=== PATIENT | male | born 1995 | race Caucasian/White ===

== ENCOUNTER → 2022-04-02 | Emergency (ER) | payer OTHER ==
[~2022-04-02] VITALS: Ht 170.2 cm; Wt 81.6 kg
[2022-04-02 17:24] VITALS: BP 118/70
== END | disposition left against medical advice (07) ==
LOC: ER 16:43
DX: J02.9 Acute pharyngitis, unspecified (principal); Z53.21 Procedure and treatment not carried out due to patient leaving prior to being seen by health care provider